=== PATIENT | male | born 1995 | race Caucasian/White ===

== ENCOUNTER 2018-05-03 17:02 | Emergency (ER) | payer BC, OTHER ==
[~2018-05-03] VITALS: Ht 175.3 cm; Wt 72.7 kg
[2018-05-03 17:14] VITALS: Ht 175.3 cm; Wt 72.7 kg
[2018-05-03 17:58] LABS: BASOPHILS 0.2 % (0-2); EOSINOPHILS 0.2 % (0-7); HEMATOCRIT 45.1 % (42.0-54.0); HEMOGLOBIN 16.1 g/dL (13.5-17.5); IMMATURE GRANULOCYTES 0.2 % (0-5); LYMPHOCYTES 10.1 % (15-50); MCH 30.2 pg (26.0-34.0); MCHC 35.7 g/dL (31.0-37.0); MCV 84.6 fL (80.0-100.0); MEAN PLATELET VOLUME 9.4 fL (7.4-10.4); MONOCYTES 5.4 % (2-11); NEUTROPHILS 83.9 % (40-80); PLATELET COUNT 292 10x3/uL (130-400); RBC 5.33 10x6/uL (4.20-6.10); RDW 11.7 % (11.5-14.5); WBC 12.4 10x3/uL (4.8-10.8)
[2018-05-03 18:08] LABS: APTT 28.6 SECONDS (22.8-39.4); INR 1.21 (0.85-1.17); PROTIME 14.8 SECONDS (11.6-15.0)
[2018-05-03 18:15] LABS: ALBUMIN 4.6 g/dL (3.4-5.0); ALKALINE PHOSPHATASE 82 U/L (46-116); ALT (SGPT) 29 U/L (10-68); BILIRUBIN - TOTAL 0.76 mg/dL (0.2-1.3); CALC OSMOLALITY 274 mosm/kg (275-300); CALCIUM 8.9 mg/dL (8.5-10.1); CARBON DIOXIDE 28.4 mmol/L (21.0-32.0); CHLORIDE - SERUM 101 mmol/L (98-107); GLUCOSE 93 mg/dL (74-106); POTASSIUM - SERUM 3.9 mmol/L (3.5-5.1); SODIUM 138 mmol/L (136-145); UREA NITROGEN 9 mg/dL (7-18); eGFR NON AFRICAN AMERICAN > 90 mL/min (90-120)
[2018-05-03 18:27] LABS: CKMB 0.5 U/L (0.0-3.6); CREATINE KINASE 76 UL (21-232)
[2018-05-03 18:36] LABS: TROPONIN-I < 0.017 ng/mL (0.000-0.060)
[2018-05-03 20:27] VITALS: BP 137/71
== END 2018-05-03 20:27 | disposition home or self-care (01) ==
LOC: D.ER 17:02
PROVIDERS: Family Medicine
DX: R07.89 Other chest pain (principal)